=== PATIENT | female | born 1960 | race Caucasian/White ===

== ENCOUNTER 2018-10-07 17:18 | Emergency (ER) | payer OTHER ==
[~2018-10-07] VITALS: Ht 162.6 cm; Wt 113.4 kg
[~2018-10-07 17:18] MED LIST: ACETAMINOOPHEN-1 TAB; ALTACE5 MG; AMITRIPTYLINE H75 MG PO; DETROL LA4 MG PO; GLUCOTROL10 MG PO; LIMBREL 500 MG500 MG PO; METFORMIN HCL500 M1 PO; NEURONTIN600 MG PO; OXCARBAZEPINE300 MG PO; PRILOSEC40 MG PO; PROTONIX40 MG; TOPROL XL50 M1; ULTRAM50 MG PO; XANAX XR0.5 MG; XANAX0.25 MG PO; [UNRECOGNIZED DRUG - OTHER] PO
[2018-10-07] MEDS ORDERED: AMITRIPTYLINE H25 MG (17:43)
[2018-10-07] MEDS ORDERED: OTEZLA30 MG (17:44)
[2018-10-07] MEDS ORDERED: TRAMADOL HCL50 MG (17:44)
[2018-10-07] MEDS ORDERED: CLOTRIMAZOLE10 MG (17:45)
[2018-10-07] MEDS ORDERED: FLUCONAZOLE150 MG (17:45)
[2018-10-08] MEDS ORDERED: OSEL75CA PO (09:28)
== END 2018-10-08 09:27 | disposition home or self-care (01) ==
LOC: ER 17:18
DX: K29.70 Gastritis, unspecified, without bleeding (principal); K59.09 Other constipation; J40 Bronchitis, not specified as acute or chronic; R10.13 Epigastric pain; R11.10 Vomiting, unspecified; J09.X2 Influenza due to identified novel influenza A virus with other respiratory manifestations; E86.0 Dehydration; B34.9 Viral infection, unspecified

== ENCOUNTER 2019-08-15 12:45 | Outpatient (CLI) | payer OTHER ==
[~2019-08-15 12:45] MED LIST changes: +AMITRIPTYLINE H25 MG; +CLOTRIMAZOLE10 MG; +FLUCONAZOLE150 MG; +OSEL75CA PO; +OTEZLA30 MG; +TRAMADOL HCL50 MG
== END 2019-08-15 15:32 | disposition home or self-care (01) ==
LOC: NUCLEAR 12:45
DX: I20.9 Angina pectoris, unspecified (principal)
CPT/HCPCS: 78472; 78496; 93225; A9560